=== PATIENT | female | born 1960 | race Caucasian/White ===

== ENCOUNTER 2016-09-09 10:50 | Day surgery (SDC) | payer BC ==
[~2016-09-09] VITALS: Ht 157.5 cm; Wt 113.4 kg
[~2016-09-09 10:50] MED LIST: ERGOCALCIF50000 UNIT PO; GLUCOPHAGE500 MG PO
[2016-09-09 11:28] VITALS: BP 180/78
[2016-09-09 11:44] LABS: POINT-OF-CARE METER ID UU14174212
[2016-09-09 14:46] LABS: POINT-OF-CARE METER ID UU13113675
[2016-09-09 16:23] VITALS: BP 177/77
[2016-09-09 16:30] VITALS: BP 141/65
[2016-09-09 17:19] VITALS: BP 164/77
[2016-09-09 18:30] VITALS: BP 143/77
[2016-09-12 13:30] LABS: INTERNAL CONTROL VALID? YES
== END 2016-09-09 18:55 | disposition home or self-care (01) ==
LOC: SDC 10:50
PROVIDERS: Obstetrics & Gynecology Gynecology
DX: R93.8 Abnormal findings on diagnostic imaging of other specified body structures (principal); Z53.09 Procedure and treatment not carried out because of other contraindication; N85.4 Malposition of uterus; D25.0 Submucous leiomyoma of uterus; E66.01 Morbid (severe) obesity due to excess calories; Z68.42 Body mass index [BMI] 45.0-49.9, adult; D64.9 Anemia, unspecified; J45.909 Unspecified asthma, uncomplicated; E11.9 Type 2 diabetes mellitus without complications; Z80.0 Family history of malignant neoplasm of digestive organs; Z83.3 Family history of diabetes mellitus; Z82.49 Family history of ischemic heart disease and other diseases of the circulatory system; Z79.84 Long term (current) use of oral hypoglycemic drugs; Z88.1 Allergy status to other antibiotic agents; Z88.8 Allergy status to other drugs, medicaments and biological substances
CPT/HCPCS: 82948; 84703; 88305; J1885; J2250; J2765; J3010